=== PATIENT | female | born 1945 | race Caucasian/White ===

== ENCOUNTER 2016-12-16 16:59 | Emergency (ER) | payer OTHER ==
[~2016-12-16] VITALS: Ht 154.9 cm; Wt 80.7 kg
[~2016-12-16 16:59] MED LIST: ALENDRONATE SOD70 MG PO; ASPIRIN EC81 M1 PO; BACLOFEN20 MG PO; CALCIUM + D 6001 TAB PO; COLACE100 MG PO; COUMADIN 5 MG TA5 MG PO; COUMADIN 6 MG TA6 MG PO; DILAUDID2 MG PO; FERROUS SULFAT325 M1 PO; FLEXERIL10 MG PO; MIRALAX17 GM PO; Mylicon PO; NORVASC 5MG TAB5 MG PO; OMEPRAZOLE20 M3 PO; PERCOCET 325 MG1 TA2 PO; PRILOSEC 20MG C20 MG PO; SENNA8.6 M1 PO; TRAMADOL50 MG PO; TYLENOL TAB 32325 MG PO; VITAB121000 PO; VITAMIN D50000 IU PO; ZOFRAN4 M1 PO
--- NOTE | 2016-12-16 17:52 | ED CARDIAC/CP/PALPITATIONS ---
History of Present Illness General Chief Complaint: General Adult Stated Complaint: SOB AND HIGH B/P Source: patient Exam Limitations: no limitations Allergies Coded Allergies: alendronate sodium (PER PT HAD TERRIBLE PAINS 10/10/15) cyclobenzaprine (Intermediate, BOTHERED ME 10/10/15) metoclopramide (Intermediate, MY DOCTOR TOLD ME NOT TO 10/10/15) Reconcile Medications Amlodipine Besylate 5 MG TABLET 1 TAB PO DAILY BP (Reported) Aspirin (Ecotrin*) 81 MG TABLET.DR 1 TAB PO DAILY HEART/BLOOD (Reported) Calcium Carbonate/Vitamin D3 (Calcium 500 + D Tablet) (Unknown Strength) TABLET (Unknown Dose) PO DAILY SUPPLEMENT (Reported) Cholecalciferol (Vitamin D3) (Vitamin D) 2,000 UNIT TABLET 1 TAB PO DAILY SUPPLEMENT (Reported) Cyanocobalamin (Vitamin B-12) 1,000 MCG TABLET 1 TAB PO DAILY SUPPLEMENT ( Reported) Omeprazole 20 MG TABLET.DR 1 TAB PO DAILY GI (Reported) Triage Note: PT STATES THAT ABOUT 30 MINUTES AGO WHILE AT HOME SITTING IN CHAIR SHE HAD SUDDEN ONSET OF FEELING SOB, AND HAD TO RUN IN BATHROOM AND VOMIT. DENIES CP BUT STTAES THAT SHE IS STILL WINDED AND CONCERNED THAT HER BP IS ELEVATED.176/83 Triage Nurses Notes Reviewed? yes Onset: Abrupt Duration: hour(s): (1.5) Timing: single episode today Location: central Radiation: no radiation Activities at Onset: rest Associated Symptoms: shortness of breath HPI: This is a 71-year-old female with history of hypertension presents to the ER with chief complaints of pressure feeling in her chest that started around 4:00 in the afternoon. She states she was sitting on a chair when she had difficulty breathing and she was in a choke. She then was nauseous and vomited 2 times which described as clear phlegm material. No history of similar symptoms before. She just eaten at around 3:00 and had one yogurt which she normally does. No abdominal pain. She does have a history of hiatal hernia. Patient is compliant with her blood pressure medications. She states she put Her blood pressure at home it was 160/101 and got concerned. She then went over to her friend's house and the systolic was 140. She states she usually runs 120s to 130s systolic. In triage blood pressure is 170 systolic. She denies any pain but still complains of that same pressure in her anterior chest. Still feels like she is having some shortness of breath. History of DVT in her left leg many years ago. She states she was on Coumadin for 3 months but then never again after that. She is unsure why she had a previous clot. No history of PE. (GABBI DUARTE MD) Vital Signs & Intake/Output Vital Signs & Intake/Output Vital Signs Date Time Temp Pulse Resp B/P B/P Pulse O2 O2 Flow FiO2 Mean Ox Delivery Rate 12/16 2101 97.4 65 20 104/51 96 Room Air 12/16 1831 97.0 70 19 172/80 95 Room Air 12/16 1705 97.1 86 18 176/83 97 Room Air Past History Travel History Traveled to [place] past 21 day No Medical History Any Pertinent Medical History? see below for history Neurological: NONE EENT: NONE Cardiovascular: hypertension Respiratory: NONE Gastrointestinal: HIATAL HERNIA Hepatic: NONE Renal: NONE Musculoskeletal: BILAT WRIST FX ELBOW AND SHOULDER DISLOC S/P FALL Psychiatric: NONE Endocrine: NONE Blood Disorders: DVT Cancer(s): NONE NETWORK SYSTEMS ENGINEER/Reproductive: NONE History of MRSA: No History of VRE: No History of CDIFF: No Pneumonia Vaccine: 07/24/11 Influenza Vaccine: 05/07/14 Surgical History Surgical History: THROMBECTOMY Psychosocial History Services at Home None What is your primary language Hebrew Tobacco Use: Never used ETOH Use: denies use Illicit Drug Use: denies illicit drug use Family History Family History, If Any: BROTHER Relation not specified for: FH: bladder cancer FH: prostate cancer Hx Contributory? No (GABIB DUARTE MD) Review of Systems Review of Systems Constitutional: Denies: chills, fever. EENTM: Reports: no symptoms. Respiratory: Reports: short of breath. Cardiovascular: Reports: chest pain. GI: Reports: no symptoms. Genitourinary: Reports: no symptoms. Musculoskeletal: Reports: no symptoms. Skin: Reports: no symptoms. Neurological/Psychological: Reports: no symptoms. Hematologic/Endocrine: Denies: bruising, bleeding, polyuria, polydipsia. Immunologic/Allergic: Denies: splenectomy. All Other Systems: Reviewed and Negative (GABBI DUARTE MD) Physical Exam Physical Exam General Appearance: well developed/nourished, alert, awake Head: atraumatic, normal appearance Eyes: Bilateral: normal appearance, PERRL, EOMI. Ears, Nose, Throat: normal pharynx, normal ENT inspection Neck: normal inspection, supple, full range of motion Respiratory: normal breath sounds, chest non-tender, no respiratory distress Cardiovascular: regular rate/rhythm Peripheral Pulses: 2+ radial (R), 2+ radial (L) Gastrointestinal: normal bowel sounds, soft, non-tender Neurologic/Psych: no motor/sensory deficits, awake, alert, oriented x 3 Skin: intact, normal color, warm/dry (GERALD FORMAN,GABBI) Core Measures ACS in differential dx? No Severe Sepsis Present: No Septic Shock Present: No (FRED FORMAN,BRENDON Moy) Progress Differential Diagnosis: AMI, aortic dissection, musculoskeletal pain, myocarditis, pericarditis, pneumonia, pneumothorax, pulmonary embolism, unstable angina Diagnostic Imaging: Viewed by Me: Radiology Read. Discussed w/RAD: Radiology Read. Hand-Off Endorsed To: FRED FORMAN,BRENDON Moy Endorsed Time: 1922 Pending: EKG, labs, Xray (GERALD FORMAN,GABBI) Plan of Care: Orders Procedure Date/time Status TROPONIN LEVEL 12/16 2100 Complete EKG 12/16 2100 Active Add-on Test (ER Only) 12/16 1807 Active Telemetry/Chief I Dispatcher 12/16 1751 Active TROPONIN LEVEL 12/16 1751 Complete PARTIAL THROMBOPLASTIN TIME 12/16 1751 Complete PROTHROMBIN TIME 12/16 1751 Complete D-DIMER 12/16 1751 Complete COMPREHENSIVE METABOLIC PANEL 12/16 1751 Complete CBC WITHOUT DIFFERENTIAL 12/16 1751 Complete EKG 12/16 1707 Active Laboratory Tests 12/16/16 2105: Troponin I < 0.01 12/16/16 1817: Anion Gap 9, Estimated GFR > 60, BUN/Creatinine Ratio 21.4, Glucose 102 H, Calcium 9.5, Total Bilirubin 0.2, AST 12 L, ALT 27, Alkaline Phosphatase 70, Troponin I < 0.01, Total Protein 6.7, Albumin 3.9, Globulin 2.8, Albumin/ Globulin Ratio 1.4, PT 10.4, INR 0.99, APTT 30, D-Dimer < 200, CBC w Diff NO MAN DIFF REQ, RBC 4.06 L, MCV 89.9, MCH 29.3, RDW 14.6 H, MPV 7.4, Gran % 54.7, Lymphocytes % 34.1, Monocytes % 9.0, Eosinophils % 1.7, Basophils % 0.5, Absolute Granulocytes 2.8, Absolute Lymphocytes 1.8, Absolute Monocytes 0.5, Absolute Eosinophils 0.1, Absolute Basophils 0, PUBS MCHC 32.6 L CXR Impression: HIATAL HERNIA... FULL REPORT BELOW. Initial ED EKG: normal axis, normal intervals, normal p-waves, normal QRS complex, normal sinus rhythm Repeat EKG: unchanged Comments: PATIENT: VIRI MC PRESENT AGE: 71 PATIENT ACCOUNT NO: [id number] : 47 LOCATION: [facility] ORDERING PHYSICIAN: GABBI DUARTE MD SERVICE DATE: 12/16/16 EXAM TYPE: RAD - XRY-CHEST XRAY, PA AND LATERAL EXAMINATION: XR CHEST CLINICAL INFORMATION: Chest pain and shortness of breath. COMPARISON: Chest x-ray dated 04/06/2015. TECHNIQUE: 2 views of the chest were obtained. FINDINGS: There is a large gastric hiatal hernia. The cardiomediastinal silhouette is normal. No airspace opacities or pleural effusions are seen. No acute osseous abnormality is seen. IMPRESSION: Clear lungs. Large gastric hiatal hernia. DICTATED BY: MARC HENRIQUEZ MD DATE/TIME DICTATED:12/16/161928 LEACH RUNNER:SAMANTHA DATE/TIME TRANSCRIBED:12/16/161928 CONFIDENTIAL, DO NOT COPY WITHOUT APPROPRIATE AUTHORIZATION. <Electronically signed in Other Vendor System> SIGNED BY: MARC HENRIQUEZ MD 1932 (FRED FORMAN,BRENDON Moy) Departure Departure Disposition: STILL A PATIENT Condition: Stable Referrals: MO CAICEDO MD (PCP/Family) Departure Forms: Customer Survey General Discharge Information (GERALD FORMAN,GABBI) Departure Clinical Impression Primary Impression: Hypertension Comments 12/16/16, 22;20.... PT FEELS WELL IN ED... NO CHEST PAIN... EKG BENIGN X 2, TROP NEG X 2 .... PT WISHES TO GO HOME. PT SAFE FOR DISCHARGE. DISCUSSED AT LENGTH... PT TO TAKE NORVASC 5MG TABS... 2 TABS A DAY... PT TO FOLLOW UP WITH PMD ON MONDAY. (FRED FORMAN,BRENDON Moy) Critical Care Note Critical Care Note Critical Care Time: non-applicable (FRED FORMAN,BRENDON Moy)
[2016-12-16 18:35] LABS: ABSOLUTE BASOPHIL COUNT 0 /CUMM (0.0-0.2); ABSOLUTE EOSINOPHIL COUNT 0.1 /CUMM (0.0-0.7); ABSOLUTE GRANULOCYTE CT 2.8 /CUMM (1.4-6.5); ABSOLUTE LYMPH COUNT 1.8 /CUMM (1.2-3.4); ABSOLUTE MONOCYTE COUNT 0.5 /CUMM (0.10-0.60); BASOPHIL % 0.5 % (0.0-2.0); EOSINOPHIL % 1.7 % (0-5); GRANULOCYTE % 54.7 % (42.2-75.2); HEMATOCRIT 36.5 % (37-47); MEAN CORPUSCULAR HGB 29.3 PG (27.0-31.0); MEAN CORPUSCULAR HGB CONC 32.6 G/DL (33.0-37.0); MEAN CORPUSCULAR VOLUME 89.9 FL (81.0-99.0); MEAN PLATELET VOLUME 7.4 FL (7.4-10.4); PLATELET COUNT 333 /CUMM (130-400); RBC DISTRIBUTION WIDTH 14.6 % (11.5-14.5); RED BLOOD CELL CT 4.06 /CUMM (4.20-5.40); WHITE BLOOD CELL COUNT 5.2 /CUMM (4.8-10.8)
[2016-12-16 18:44] LABS: PT 10.4 SEC (9.4-12.5); PTT 30 SEC (25-37)
--- NOTE | 2016-12-16 19:33 | RADIOLOGY REPORT ---
EXAMINATION: XR CHEST CLINICAL INFORMATION: Chest pain and shortness of breath. COMPARISON: Chest x-ray dated 04/06/2015. TECHNIQUE: 2 views of the chest were obtained. FINDINGS: There is a large gastric hiatal hernia. The cardiomediastinal silhouette is normal. No airspace opacities or pleural effusions are seen. No acute osseous abnormality is seen. IMPRESSION: Clear lungs. Large gastric hiatal hernia.
[2016-12-16] MEDS ORDERED: AMLODIPINE BESYL5 M1 PO (19:44)
[2016-12-16] MEDS ORDERED: VITAMIN B-121000 MC3 PO (19:45)
[2016-12-16] MEDS ORDERED: CALCIUM 500 +1 EAC5 PO (19:45)
[2016-12-16] MEDS ORDERED: VITAMIN D2000 UNI1 PO (19:45)
[2016-12-16 22:25] VITALS: BP 115/65
== END 2016-12-16 22:34 ==
LOC: ERH 16:59
PROVIDERS: Emergency Medicine
DX: I10 Essential (primary) hypertension (principal); R07.89 Other chest pain
CPT/HCPCS: 93005; 93010

== ENCOUNTER 2017-09-15 16:46 | Emergency (ER) | payer OTHER ==
[~2017-09-15] VITALS: Ht 154.9 cm; Wt 83.9 kg
[~2017-09-15 16:46] MED LIST changes: +AMLODIPINE BESYL5 M1 PO; +CALCIUM 500 +1 EAC5 PO; +VITAMIN B-121000 MC3 PO; +VITAMIN D2000 UNI1 PO
--- NOTE | 2017-09-15 18:14 | ULTRASOUND REPORT ---
EXAMINATION: US TRIPLEX LOWER EXTREMITY, LEFT CLINICAL INFORMATION: History of DVT, 2014. Now with pain and swelling. COMPARISON: None TECHNIQUE: Color-flow triplex imaging with spectral analysis and compression Doppler were performed on the lower extremity. FINDINGS: Respiratory variation, normal compression and augmented flow are noted throughout the lower extremity. The visualized common femoral vein, superficial femoral vein, profunda femoral vein, popliteal vein and midcalf peroneal and posterior tibial venous segments show no evidence of deep venous thrombosis. There is no Mendoza's cyst. IMPRESSION: Normal triplex scan without evidence of deep venous thrombosis involving the lower extremity.
--- NOTE | 2017-09-15 18:26 | ED UPPER/LOWER EXTREMITY COMPL ---
History of Present Illness General Chief Complaint: Lower Extremity Problems Stated Complaint: LEFT LEG AND KNEE PAIN, HX OF CLOT IN SAME LEG Source: patient, family, old records Exam Limitations: no limitations Vital Signs & Intake/Output Vital Signs & Intake/Output Vital Signs Date Time Temp Pulse Resp B/P B/P Pulse O2 O2 Flow FiO2 Mean Ox Delivery Rate 09/15 1734 Room Air 09/15 1714 98.0 90 18 167/83 96 Room Air Room Air Allergies Coded Allergies: alendronate sodium (PER PT HAD TERRIBLE PAINS 10/10/15) cyclobenzaprine (Intermediate, BOTHERED ME 10/10/15) metoclopramide (Intermediate, MY DOCTOR TOLD ME NOT TO 10/10/15) Reconcile Medications Amlodipine Besylate 5 MG TABLET 1 TAB PO DAILY BP (Reported) Aspirin (Ecotrin*) 81 MG TABLET.DR 1 TAB PO DAILY HEART/BLOOD (Reported) Calcium Carbonate/Vitamin D3 (Calcium 500 + D Tablet) (Unknown Strength) TABLET (Unknown Dose) PO DAILY SUPPLEMENT (Reported) Cholecalciferol (Vitamin D3) (Vitamin D) 2,000 UNIT TABLET 1 TAB PO DAILY SUPPLEMENT (Reported) Cyanocobalamin (Vitamin B-12) 1,000 MCG TABLET 1 TAB PO DAILY SUPPLEMENT ( Reported) Omeprazole 20 MG TABLET.DR 1 TAB PO DAILY GI (Reported) Triage Note: PT TO ED WITH C/O LEFT UPPER THIGH PAIN "ALL THE WAY DOWN TO RANKIN AREA". HX OF DVT 2013. Triage Nurses Notes Reviewed? yes HPI: 71F PMH HTN, hiatal hernia, history of DVT in 2013 provoked by a flight to [place] treated with 3 months of Coumadin, presenting today with acute onset of left knee pain radiating down her left rankin, with similar sensation this time. No recent fracture, immobilization, travel. Does not smoke. No trauma to the area. Reports she feels like her left thigh is bigger than her right. Denies chest pain, SOB, palpitations, lightheadedness, fever, chills. Past History Travel History Traveled to [place] past 21 day No Medical History Any Pertinent Medical History? see below for history Neurological: NONE EENT: NONE Cardiovascular: hypertension Respiratory: NONE Gastrointestinal: HIATAL HERNIA Hepatic: NONE Renal: NONE Musculoskeletal: BILAT WRIST FX ELBOW AND SHOULDER DISLOC S/P FALL Psychiatric: NONE Endocrine: NONE Blood Disorders: LEFT DVT Cancer(s): NONE SURGICAL AIDE/Reproductive: NONE History of MRSA: No History of VRE: No History of CDIFF: No Surgical History Surgical History: THROMBECTOMY Psychosocial History Services at Home None What is your primary language Spanish Tobacco Use: Never used ETOH Use: denies use Illicit Drug Use: denies illicit drug use Family History Family History, If Any: BROTHER Relation not specified for: FH: bladder cancer FH: prostate cancer Hx Contributory? No Review of Systems Review of Systems Constitutional: Reports: no symptoms. EENTM: Reports: no symptoms. Respiratory: Reports: no symptoms. Cardiovascular: Reports: no symptoms. Gastrointestinal/Abdominal: Reports: no symptoms. Genitourinary: Reports: no symptoms. Musculoskeletal: Reports: no symptoms. Skin: Reports: no symptoms. Neurological/Psychological: Reports: no symptoms. Hematologic/Endocrine: Reports: no symptoms. Immunological: Reports: no symptoms. All Other Systems: Reviewed and Negative Physical Exam Physical Exam General Appearance: well developed/nourished, mild distress Head: atraumatic Eyes: Bilateral: normal appearance. Ears, Nose, Throat: normal pharynx, normal ENT inspection, hearing grossly normal Neck: normal inspection, supple Cardiovascular/Respiratory: regular rate/rhythm Back: normal inspection, normal range of motion Leg Left: normal range of motion, normal inspection, tenderness, no swelling erythema or cords, no calf swelling Leg Right: normal range of motion, normal inspection Knee Left: normal range of motion, normal inspection Knee Right: normal range of motion, normal inspection Skin: intact, normal color, warm/dry Lymphatic: no anterior cervical denzel Progress Differential Diagnosis: arterial insufficiency, cellulitis, CHF, compartment syndrome, contusion, dislocation, DVT, fracture, gout, septic arthritis, sprain, tendon injury Plan of Care: Doppler negative, low suspicion for fracture or cellulitis, will discharge home on Tylenol and warm compresses. Diagnostic Imaging: Viewed by Me: Ultrasound. Discussed w/RAD: Ultrasound. Radiology Impression: PATIENT: VIRI MC PRESENT AGE: 71 PATIENT ACCOUNT NO: [id number] : 47 LOCATION: [facility] ORDERING PHYSICIAN: Karin Tipton MD SERVICE DATE: 09/15/17 EXAM TYPE : US - US-UNILATERAL VENOUS DOPPLER EXAMINATION: US TRIPLEX LOWER EXTREMITY, LEFT CLINICAL INFORMATION: History of DVT, 2014. Now with pain and swelling. COMPARISON: None TECHNIQUE: Color-flow triplex imaging with spectral analysis and compression Doppler were performed on the lower extremity. FINDINGS: Respiratory variation, normal compression and augmented flow are noted throughout the lower extremity. The visualized common femoral vein, superficial femoral vein, profunda femoral vein, popliteal vein and midcalf peroneal and posterior tibial venous segments show no evidence of deep venous thrombosis. There is no Mendoza's cyst. IMPRESSION: Normal triplex scan without evidence of deep venous thrombosis involving the lower extremity. DICTATED BY: Charly Ray MD DATE/TIME DICTATED:09/15/171809 PEDIATRIC DIETICIAN:SAMANTHA DATE/TIME TRANSCRIBED:09/15/171809 Departure Departure Disposition: HOME OR SELF CARE Condition: Stable Clinical Impression Primary Impression: Left leg pain Referrals: Paresh FORMAN,Fox Tucker (PCP/Family) Additional Instructions: Follow up with your PCP. If you notice and new or worsening symptoms, return to emergency room. You can use warm/cool compresses and Tylenol or Ibuprofen for pain. Departure Forms: Customer Survey General Discharge Information
[2017-09-15 18:27] VITALS: BP 133/60
== END 2017-09-15 18:47 ==
LOC: ERH 16:46
DX: M79.605 Pain in left leg (principal)